=== PATIENT | male | born 1960 | race Caucasian/White ===

== ENCOUNTER 2021-06-17 22:46 | Inpatient (IN) | payer MEDICARE, OTHER ==
[~2021-06-17] VITALS: Ht 188 cm; Wt 89.4 kg
--- NOTE | 2021-06-17 23:02 | NUR ---
MEDICALLY CLEARED BY DR DIAZ.
--- NOTE | 2021-06-17 23:36 | NUR ---
TRANSFERED TO [facility] VIA WHEELCHAIR WITH NO DISTRESS NOTED.
[2021-06-18] MEDS ORDERED: ACETAMINOPHEN 650 MG SUPP.RECT RC PRN (00:30)
[2021-06-18] MEDS ORDERED: MAG HYDROX/AL HYDROX/SIMETH 30 ML LIQUID UDC PO PRN (00:30)
[2021-06-18] MEDS ORDERED: ACETAMINOPHEN 325 MG TABLET PO PRN (00:30)
[2021-06-18] MEDS ORDERED: BLOOD SUGAR DIAGNOSTIC 1 EACH STRIP VI ONE (00:30)
--- NOTE | 2021-06-18 04:37 | NUR ---
Per hold, patient is on a 5150 for GD, DTS and DTO. Advisement states that patient is manic and agitated, yelling out at neighbors and running out into the street. On face to face evaluation, patient has a blunted affect and has a hard time expressing self and responding to questions, but is pleasant and AOx4. Denies any pain or discomfort at this time and is able to follow commands. Denies and AH, VH, SI or HI.
[2021-06-18 05:41] VITALS: BP 154/95
--- NOTE | 2021-06-18 06:29 | NUR ---
Patients' Rights Handbook and Advisement given to pt. Dr. Kamara and Dr. Fuller aware of admission. Pt refused to answer most admission questions. Safety precautions in place.
[2021-06-18 08:34] VITALS: BP 140/69
[2021-06-18] MEDS: AMLODIPINE 10 MG TABLET PO SCH (08:40)
--- NOTE | 2021-06-18 08:58 | NUR ---
SW Family Contact SW spoke with patient's brother Naseem Ziegler ([phone]) and discussed treatment and discharge plan. Naseem provided collateral information (see SW assessment). Naseem stated pt's mother, Lydia Ziegler, is the DPOA and conservator, this SW requested copies. Naseem would like SNF placement for the patient at [facility] ([phone]) prior to returning to [facility] ([phone]). SW will coordinate appropriate placement options.
--- NOTE | 2021-06-18 09:09 | NUR ---
Treatment Plan Patient refused to sign treatment plan due to disorganized thought process.
--- NOTE | 2021-06-18 09:28 | NUR ---
GPS: PB RIZVI, COORDINATOR FROM PT APARTMENT CALLED AND SPOKE TO ENTRY LEVEL PROJECT ENGINEER ABOUT PT CONDITION. PER PB, PT HAS BEEN YELLING ON NEIGHBORS AND RUNNING ON STREET TRAFFIC WITH NO REGARDS TO HIS SAFETY THAT'S WHY NEIGHBORS CALLED 911. PER PB, HE WILL SEND PT MEDICATION LIST THRU FAX. PB RIZVI CONTACT NO. IS . ALSO SPOKE WITH HIS BROTHER ANGELA SELBY, WITH PT APPROVAL TO UPDATE THE BROTHER WITH HIS CONDITION. PER ANGELA, PT IS VERY NICE WHEN TAKING HIS MEDICATION AND BE MANIC WHEN PT STOPS TAKING HIS MEDS. ALSO PER ANGELA, PT HAD A MEDICAL ISSUE ON LEFT LOWER LEG, A HISTORY OF CELLULITIS. UPON ASSESSMENT, PT HAS PITTING EDEMA +2 ON LEFT LOWER LEG WITH REDNESS NOTED, NOT WARM TO TOUCH. WILL NOTIFY REHABILITATION CONSULTANT TO CHECK ON IT.
--- NOTE | 2021-06-18 09:28 | NUR ---
AGUSTIN Initial Discharge Plan Patient currently resides at [facility] [address], [place] [address] ([phone]). AGUSTIN contacted [facility] and spoke with Stefan Albrecht, human services program specialist, who stated patient is welcome back. AGUSTIN will continue to work with patient, family, and MD to ensure a safe and proper discharge plan.
--- NOTE | 2021-06-18 09:30 | NUR ---
SW Facility Contact SW spoke with Stefan Albrecht, program or project administrator with [facility] ([phone]) and discussed treatment and discharge plan. Stefan Albrecht stated patient is welcome back. Stefan Albrecht provided information on pt's psychiatrist, Dr. Javier Krueger, and internal psychiatric nurse, Sarah Barahona ([phone]).
--- NOTE | 2021-06-18 09:47 | NUR ---
GPS: ANGELA SELBY NO. IS .
--- NOTE | 2021-06-18 09:56 | NUR ---
SW Family Contact SW spoke with patient's mom Lydia Ziegler ([phone]) to discuss treatment and discharge plan and request copies of DPOA. Lydia stated she does not believe she is the DPOA.
--- NOTE | 2021-06-18 12:58 | NUR ---
GPS: SPOKE WITH ITALIA CALLAHAN, [facility] COORDINATOR OF [facility]UAN KESHIA CRIS, PT HAVE 2 MEDICATIONS. SEROQUEL XR 300MG QHS, MELATONIN 5MG QHS. PER PHARMACY TO INPUT ORDER ON EMAR. WILL NOTIFY DR WRIGHT (PROJECT MANAGER/DESIGN MANAGER AND PSYCHIATRIST). Addendum: 06/18/21 at 1617 by AMY ORTIZ RN REMOVED SEROQUEL AND MELATONIN ORDER. WILL INFORM DR PUGA FIRST.
--- NOTE | 2021-06-18 13:38 | NUR ---
GPS: PT REFUSED MRSA SWAB TODAY. WILL TRY LATER.
[2021-06-18 16:00] VITALS: BP 133/67
[2021-06-18 20:10] VITALS: BP 136/62
[2021-06-18] MEDS ORDERED: QUETIAPINE FUMARATE 200 MG TABLET PO SCH (21:00)
[2021-06-18] MEDS ORDERED: MELATONIN 3 MG TABLET PO SCH (21:00)
[2021-06-19 07:30] VITALS: BP 136/82
[2021-06-19] MEDS: AMLODIPINE 10 MG TABLET PO SCH (08:21)
[2021-06-19] MEDS: DIVALPROEX 250 MG TABLET.DR PO SCH ×3 (08:30→17:00)
[2021-06-19] MEDS: BENZTROPINE MESYLATE 1 MG TABLET PO SCH ×3 (08:30→17:00)
[2021-06-19] MEDS: HALOPERIDOL 5 MG TABLET PO SCH ×3 (08:30→17:00)
--- NOTE | 2021-06-19 09:19 | NUR ---
Firearms Report: Head Packager completed and submitted a [employer] firearms report for 5150 danger to self, danger to others, and grave disability certifications. A copy of report has been placed in patient chart.
[2021-06-19] MEDS: CEphaleXIN 500 MG CAPSULE PO SCH ×2 (17:00→20:08)
[2021-06-19 19:55] VITALS: BP 144/79
--- NOTE | 2021-06-20 01:41 | NUR ---
Received Pt wandering the hallways and asking "what kind of place is this?" Pt is A+O x2 to self and somewhat to day/date. Pt appears to be confused, disoriented, and disorganized and requires frequent redirection and reorientation. Pt is paranoid and suspicious of staff and resistant to care. Pt is non compliant with medications, and uncooperative with his treatment plan despite extensive encouragement and prompting. VS stable, denies pain.
--- NOTE | 2021-06-20 01:45 | NUR ---
Received pt sleeping comfortably in bed. Aroused easily to verbal stimuli. No acute distress noted. Ambulatory. Safety measures maintained. Will continue to monitor.
[2021-06-20 07:30] VITALS: BP 131/82
[2021-06-20] MEDS: DIVALPROEX 250 MG TABLET.DR PO SCH ×3 (09:00→17:00)
[2021-06-20] MEDS: BENZTROPINE MESYLATE 1 MG TABLET PO SCH ×3 (09:00→17:00)
[2021-06-20] MEDS: CEphaleXIN 500 MG CAPSULE PO SCH ×2 (09:00→13:00)
[2021-06-20] MEDS: HALOPERIDOL 5 MG TABLET PO SCH ×3 (09:00→17:00)
[2021-06-20] MEDS: AMLODIPINE 10 MG TABLET PO SCH ×2 (09:00→17:14)
[2021-06-20 16:00] VITALS: BP 143/83
[2021-06-20 20:00] VITALS: BP 147/77
--- NOTE | 2021-06-21 04:18 | NUR ---
PT NOT SLEEPING AT ALL IN BED. FREQUENTLY AMBULATING UNIT HALLWAY, WANDERING AIMLESSLY AND GOING INTO OTHER PT ROOMS. PT IS QUITE PARANOID AND DELUSIONAL, BELIEVES PIERCING ARTIST IS NOT A REAL NURSE. REFUSES SLEEPING MEDICATIONS BECAUSE "I DON'T TAKE PILLS FROM PEOPLE THAT AREN'T REAL NURSES."
[2021-06-21] MEDS: DIVALPROEX 250 MG TABLET.DR PO SCH ×3 (08:36→16:16)
[2021-06-21] MEDS: BENZTROPINE MESYLATE 1 MG TABLET PO SCH ×3 (08:36→16:15)
[2021-06-21] MEDS: HALOPERIDOL 5 MG TABLET PO SCH ×3 (08:36→16:16)
--- NOTE | 2021-06-21 14:02 | NUR ---
The patient refused the left lower extremity ultrasound. RN [place] noted.
--- NOTE | 2021-06-21 14:16 | NUR ---
pt refused JAZMINE order. Pt refusing all his medications today. Pt refused blood draw am.
[2021-06-21 21:43] VITALS: BP 156/86
[2021-06-22] MEDS ORDERED: OLANZAPINE 10 MG VIAL IM ONE (00:45)
--- NOTE | 2021-06-22 06:20 | NUR ---
PT was disorganized at start of shift. He wandered into peers rooms, requiring frequent redirection. He refused and PRN medications. At 2300, he began to turn over the table in the activity room. He was yeling and moving from chair to chair, appearing distracted by internal stimuli. He continued to be unable to be redirected at 2330, and began to be aggressive, and posturing with his fists. IM Zyprexa 10 mg was given at 0055, and he eventually calmed down and went to sleep. As of now, he continues to sleep, but only slept 3.75 hours, for the whole night. No distress noted.
[2021-06-22] MEDS: LORAZEPAM 1 MG TABLET PO PRN (07:45)
[2021-06-22] MEDS: HALOPERIDOL 5 MG TABLET PO SCH ×3 (08:37→16:15)
[2021-06-22] MEDS: DIVALPROEX 250 MG TABLET.DR PO SCH ×3 (08:37→16:15)
[2021-06-22] MEDS: BENZTROPINE MESYLATE 1 MG TABLET PO SCH ×3 (08:37→16:15)
[2021-06-22] MEDS: AMLODIPINE 10 MG TABLET PO SCH (08:38)
--- NOTE | 2021-06-22 13:42 | NUR ---
SW SNF Referral SW faxed patient's referral packet to [address] [address] ( ) attention to Bety for review.
--- NOTE | 2021-06-22 13:45 | NUR ---
SW Family Contact SW returned voice mail from pt's brother Naseem Ziegler ([phone]) and provided updates to discharge planning.
--- NOTE | 2021-06-22 18:15 | NUR ---
GPS: Nursing Notes: Noncompliance With Medications: Patient is awake and responding to his name, impaired judgement, wandering around the unit, getting into other patient's room, forgetful at times, paranoid behavior, refusing his psych. medications, stated "those pills are for schizophrenics, and they are not for me..", gets easily irritable when redirected, explained the pros and cons of medications, but continue to refuse his psych. medications, stated "There is nothing wrong with me..", angry affect, loud and pressured speech when redirected, unkempt appearance, unable to formulate a viable plan for self care, continue to monitor for safety, continue with treatment plan.
--- NOTE | 2021-06-22 22:00 | NUR ---
Received to care, initially relatively calm, but appearing to actively respond to internal stimuli, and is non interactive with peers. After a few hours, he has begun to be increasingly agitated, pacing the hallway, wandering into peers rooms, intrusive with both peers and staff. When staff attempts to redirect him, he retains an aggressive stance, and states "you are not a nurse. You do not work here. Get away from me.' he de escalates when staff stops engaging or redirecting him. He refused all PRN medications, stating "you are trying to given me medicine for schizophrenics". As of now, he is watching TV, talking to self, occasionally yelling. Peers are all fearful of him, and his unpredictable behavior. Will continue to monitor closely, for safety.
[2021-06-22] MEDS ORDERED: HALOPERIDOL LACTATE 5 MG/1 ML VIAL IM ONE (23:45)
[2021-06-22] MEDS ORDERED: diphenhydrAMINE 50 MG/1 ML VIAL IM ONE (23:45)
[2021-06-22] MEDS ORDERED: LORAZEPAM 2 MG/1 ML VIAL IM ONE (23:45)
--- NOTE | 2021-06-23 04:46 | NUR ---
CHEMICAL RESTRAINT NOTE: Pt had continued to escalate in his psychotic and aggressive behavior, pacing the hallway, yelling and talking to self, and posturing with his fists, when staff would attempt to redirect him, to the point that security was called, and Dr Fuller was paged. He went to his room, and threatened to harm his room mate, who was quickly removed. an emergency injection of IM Haldol 3mg /Ativan 2 mg/ Benadryl 25 mg was given at 0006, without incident, to the left and right deltoid regions, with his consent, after agreeing to let the female nurse administer it, with security standing right next to him, after he said he didn't want me anywhere near him, because I "was an intruder". He calmed down within about 20 minutes, and was asleep in his bed, by 0100, with the bed alarm on, for his own safety. As of now, he continues to sleep. Respirations remain even, and unlabored. No distress noted. Will continue to monitor closely.
--- NOTE | 2021-06-23 06:00 | NUR ---
Continues to sleep. Slept 4.75 hours, total.
[2021-06-23 07:30] VITALS: BP 151/86
[2021-06-23 08:19] LABS: CREATININE 1.1 mg/dL (0.6-1.3); POTASSIUM 3.9 mmol/L (3.5-5.1)
[2021-06-23] MEDS: DIVALPROEX 250 MG TABLET.DR PO SCH ×3 (08:45→17:00)
[2021-06-23] MEDS: HALOPERIDOL 5 MG TABLET PO SCH ×3 (08:45→17:00)
[2021-06-23] MEDS: BENZTROPINE MESYLATE 1 MG TABLET PO SCH ×3 (08:45→17:00)
[2021-06-23] MEDS: AMLODIPINE 10 MG TABLET PO SCH (08:46)
--- NOTE | 2021-06-23 10:15 | NUR ---
GPS: COURT HEARING DONE. PT HOLD ON GRAVELY DISABLE. PT REFUSED SPEAKING WITH PT RIGHT ADVOCATE.
[2021-06-23 15:39] VITALS: BP 139/83
--- NOTE | 2021-06-23 16:13 | NUR ---
GPS: Nursing Notes: Noncompliance With Medications: Patient is awake and responding to his name, paranoid behavior, refusing his medications, believes that there is nothing wrong with him, stated "I do not take pills..", episodes of going into other patient's room, redirected and reoriented during shift, unable to formulate a viable plan for self care, re-offer his psych. medications, but continue to refuse medications, labile, unpredictable behavior, asking for a shower, but when staff opens the shower door, patient walks away stating "I don't need it..", continue to monitor for safety, continue with treatment plan.
--- NOTE | 2021-06-23 17:20 | NUR ---
GPS: Nursing Notes: Riese Petition: Patient has been served a copy of [employer], continue to monitor for safety, continue with treatment plan.
[2021-06-23 20:45] VITALS: BP 142/73
[2021-06-24] MEDS: LORAZEPAM 1 MG TABLET PO PRN (04:07)
--- NOTE | 2021-06-24 04:43 | NUR ---
isolative and guarded, all night. observeb to be restless all night, going betweeen the activity rooom, and his room. Assited with a shower at around 0230. PRN ativan given at 0407, with much encouragement. He now appears calmer. No aggressive behavior observed. Assisted as needed.
--- NOTE | 2021-06-24 06:00 | NUR ---
Slept 2.5 hours. hE continues to sleep. No distress noted.
[2021-06-24 07:30] VITALS: BP 159/87
[2021-06-24] MEDS: DIVALPROEX 250 MG TABLET.DR PO SCH ×3 (08:44→17:00)
[2021-06-24] MEDS: BENZTROPINE MESYLATE 1 MG TABLET PO SCH ×3 (08:44→17:00)
[2021-06-24] MEDS: HALOPERIDOL 5 MG TABLET PO SCH ×3 (08:45→17:00)
[2021-06-24] MEDS: AMLODIPINE 10 MG TABLET PO SCH ×2 (08:45→20:49)
[2021-06-24 16:28] VITALS: BP 137/67
[2021-06-24 20:12] VITALS: BP 161/86
[2021-06-25 07:30] VITALS: BP 142/86
[2021-06-25] MEDS: AMLODIPINE 10 MG TABLET PO SCH (10:09)
[2021-06-25] MEDS: HALOPERIDOL 5 MG TABLET PO SCH ×4 (10:10→17:00)
[2021-06-25] MEDS: DIVALPROEX 250 MG TABLET.DR PO SCH ×4 (10:10→17:00)
[2021-06-25] MEDS: BENZTROPINE MESYLATE 1 MG TABLET PO SCH ×4 (10:10→17:00)
--- NOTE | 2021-06-25 14:41 | NUR ---
Gps/Ecg Technician- Took am routine meds. this am, refused afternoon , claimed he does not need too much meds.
[2021-06-25 16:00] VITALS: BP 120/85
[2021-06-25 20:00] VITALS: BP 133/82
[2021-06-26 07:30] VITALS: BP 137/83
--- NOTE | 2021-06-26 08:30 | NUR ---
RECEIVED CALL FROM DR PUGA INQUIRING WHAT TIME RIESE HEARING WAS TO BE DONE BECAUSE HE MADE HIS AVAILABILITY FOR TODAY. NO HEARING DATE WAS NOTED TO BE HELD TODAY. TOLD DR. PUGA I WOULD CALL HIM BACK SO I CAN CALL THE COURTS AND INQUIRE. BOILER ASSISTANT OPERATOR CALLED THE COURT AND AN AUTOMATED MESSAGE REVEALED THEY ARE CLOSED FOR THE EXTENDED HOLIDAYS. CALLED AND NOTIFIED DR. PUGA. HE IS AWARE AND WILL FOLLOW UP ON TUESDAY.
[2021-06-26] MEDS: BENZTROPINE MESYLATE 1 MG TABLET PO SCH ×3 (09:00→17:00)
[2021-06-26] MEDS: HALOPERIDOL 5 MG TABLET PO SCH ×3 (09:00→17:00)
[2021-06-26] MEDS: DIVALPROEX 250 MG TABLET.DR PO SCH ×3 (09:00→17:00)
[2021-06-26] MEDS: AMLODIPINE 10 MG TABLET PO SCH (09:00)
--- NOTE | 2021-06-26 10:30 | NUR ---
PT RECEIVED UNIT AMBULATING UNIT HALLWAY. PARANOID AND SUSPICIOUS. PT EXHIBITS BIZARRE BEHAVIOR AT TIMES, AVOIDS EYE CONTACT WHILE AIR CONDITIONING SERVICE TECHNICIAN IS TALKING TO HIM, AND IN THE MIDDLE OF A CONVERSATION WILL WALK AWAY. REFUSED ALL PO MEDICATIONS. WHEN ASKED WHY, PT STATES "THEY'RE NOT MY MEDICATION" AND "YOU'RE NOT A NURSE." UNABLE TO REORIENT TO REALITY.
[2021-06-26 16:45] VITALS: BP 152/84
[2021-06-26 20:34] VITALS: BP 155/80
[2021-06-27 08:10] VITALS: BP 145/84
[2021-06-27] MEDS: DIVALPROEX 250 MG TABLET.DR PO SCH ×3 (08:38→16:38)
[2021-06-27] MEDS: BENZTROPINE MESYLATE 1 MG TABLET PO SCH ×3 (08:38→16:38)
[2021-06-27] MEDS: HALOPERIDOL 5 MG TABLET PO SCH ×3 (08:38→16:38)
[2021-06-27] MEDS: AMLODIPINE 10 MG TABLET PO SCH (08:39)
--- NOTE | 2021-06-27 14:02 | NUR ---
Pt. is received awake in his room. A/O X 2 to person, place. Pt. affect is bizarre, suspicious with medications, talkative. Pt. was complaint with medications this morning, but refused all 13:00 medications. Ambulates without assistance, self care, redirectable. Pt. is encourage to vent feelings and emotions. Fall and safety precautions implemented.
[2021-06-27 15:46] VITALS: BP 135/81
--- NOTE | 2021-06-27 16:39 | NUR ---
Patient is compliant with medications at this time.
[2021-06-27 20:00] VITALS: BP 137/77
[2021-06-28 07:38] VITALS: BP 142/80
--- NOTE | 2021-06-28 08:00 | NUR ---
REC'D PATIENT AIN BED QUIET WITH NO SELF DISCLOUSURE, mood quiet no anxiety noted. Took am meds ok a little paranoid about them explained what meds for , no peer interaction noted isolative in room mostlly.patient mood bizarre alittle , continue to monitor for safety;
[2021-06-28] MEDS: AMLODIPINE 10 MG TABLET PO SCH (09:34)
[2021-06-28] MEDS: BENZTROPINE MESYLATE 1 MG TABLET PO SCH ×2 (09:34→16:48)
[2021-06-28] MEDS: DIVALPROEX 500 MG TABLET.DR PO SCH ×2 (09:35→16:47)
[2021-06-28] MEDS: HALOPERIDOL 5 MG TABLET PO SCH ×3 (09:36→17:00)
[2021-06-28 15:59] VITALS: BP 119/74
--- NOTE | 2021-06-28 18:22 | NUR ---
Patient refused 1700 meds stating he only takes them in am tried too explain they are orderd twice a day to no success, pt pulled emergency light in bathroom for no reason asked why he said he just did. Pt fumbling in closet. Bizarre in pm, Continue to monitor for safety;
[2021-06-28 20:07] VITALS: BP 132/76
[2021-06-28] MEDS: TEMAZEPAM 7.5 MG CAPSULE PO PRN (23:38)
[2021-06-29 07:59] VITALS: BP 117/75
--- NOTE | 2021-06-29 08:00 | NUR ---
RECEVIED PATIENT in room still forgetful and a little confused, reoriented to the plans of the day. Pt refused meds and encouraged to take them to help him feel better, informed Charge Nurse of it patient has been Reissed put not implemented.Psychiastrist made aware by Charge nurse.pt pacing hallways to day room still with loose thoughts. continue to encourage medicatio to take.
[2021-06-29] MEDS: DIVALPROEX 500 MG TABLET.DR PO SCH ×2 (09:00→17:35)
[2021-06-29] MEDS: BENZTROPINE MESYLATE 1 MG TABLET PO SCH ×2 (09:00→17:34)
[2021-06-29] MEDS: AMLODIPINE 10 MG TABLET PO SCH (09:00)
[2021-06-29] MEDS: HALOPERIDOL 5 MG TABLET PO SCH ×2 (09:00→17:00)
--- NOTE | 2021-06-29 09:39 | NUR ---
Called [facility] around 09:45 am at [phone] regards to patient elissa faxed on 06/22/21 at 22:40, talked to Isabelle and she told me she never got our fax related to this patient elissa.
--- NOTE | 2021-06-29 12:47 | NUR ---
SW Facility Contact SW called [facility] located at [address] [place] [address] ([phone]) and was referred to Filippo trade show coordinator ([phone]) to follow-up on status of referral. Ermias corrales referral is pending clinical approval.
--- NOTE | 2021-06-29 12:57 | NUR ---
SW SNF Referral SW faxed patient's referral packet to [address] [place] [address] ( ) attention to Beyt for review.
--- NOTE | 2021-06-29 14:49 | NUR ---
SW Facility Contact AGUSTIN spoke with Bety at [address] [address] ( ) to provide more information regarding patient's medication compliance. Bety stated that she will follow up with AGUSTIN with updates on acceptance at facility.
[2021-06-29 15:58] VITALS: BP 146/75
--- NOTE | 2021-06-29 16:16 | NUR ---
AGUSTIN Care Coordination Contact AGUSTIN spoke with Cathy Wilson ([phone]) clinician at [facility] and discussed treatment and discharge plan.
--- NOTE | 2021-06-29 18:33 | NUR ---
no changes in strange behavior no peer interaction unkempt and hard to get through.
[2021-06-29 19:57] VITALS: BP 115/73
[2021-06-30] MEDS: LORAZEPAM 1 MG TABLET PO PRN (03:00)
[2021-06-30 08:00] VITALS: BP 146/76
[2021-06-30] MEDS: BENZTROPINE MESYLATE 1 MG TABLET PO SCH ×2 (08:28→17:10)
[2021-06-30] MEDS: AMLODIPINE 10 MG TABLET PO SCH (08:29)
[2021-06-30] MEDS: DIVALPROEX 500 MG TABLET.DR PO SCH ×2 (08:30→17:00)
[2021-06-30] MEDS: HALOPERIDOL 5 MG TABLET PO SCH ×2 (08:30→17:00)
[2021-06-30 16:00] VITALS: BP 156/81
--- NOTE | 2021-06-30 16:09 | NUR ---
Pt. is A/O X 1 -2 to person. Pt. affect is bizarre, suspicious with medications, withdrawn, isolative at times. Refuses Depakote 500 mg and Haldol 10 mg at 10:00 am. Ambulates without assistance. Reality orientation provided. Fall and safety precautions implemented.
--- NOTE | 2021-06-30 21:00 | NUR ---
RECEIVED PATIENT IN THE DAY ROOM. HE IS NOTED A/O X 1. HE IS ABLE TO AMBULATE WITH STEADY GAIT. PATIENT IS NOTED WITH IMPAIRED INSIGHT AND JUDGMENT TO THE REASON FOR HIS ADMISSION TO [facility]. HE IS A POOR HISTORIAN. NOTED RESTLESS, PARANOID IDEATION, PACING THE HALLWAY; HOWEVER, NO AGGRESSIVE BX NOTED AT THIS TIME.PO FLUIDS AND SNACKS WERE GIVEN. V/S STABLE. HE IS REASSURED FOR HIS SAFETY. SAFETY AND FALL PRECAUTION IN PLACE. WILL CONTINUE TO MONITOR.
[2021-06-30] MEDS: TEMAZEPAM 7.5 MG CAPSULE PO PRN (23:35)
--- NOTE | 2021-06-30 23:40 | NUR ---
patient noted pacing the hallway, unable to stay in bed. temazepam 7.5mg PO PRN was given. will continue to monitor.
[2021-07-01] MEDS: LORAZEPAM 1 MG TABLET PO PRN (03:25)
--- NOTE | 2021-07-01 03:35 | NUR ---
patient noted pacing the hallway, he was noted anxious and hard to redirect. Ativan 1 mg PO PRN was given. will continue to monitor.
--- NOTE | 2021-07-01 07:20 | NUR ---
Patient slept for approx 5.5 hrs through the night. Noted calm and cooperative at this time.
[2021-07-01 07:30] VITALS: BP 132/80
[2021-07-01] MEDS: BENZTROPINE MESYLATE 1 MG TABLET PO SCH ×2 (09:00→16:41)
[2021-07-01] MEDS: DIVALPROEX 500 MG TABLET.DR PO SCH ×2 (09:00→16:41)
[2021-07-01] MEDS: AMLODIPINE 10 MG TABLET PO SCH (09:00)
[2021-07-01] MEDS: HALOPERIDOL 5 MG TABLET PO SCH ×2 (09:00→16:42)
[2021-07-01 16:00] VITALS: BP 133/80
--- NOTE | 2021-07-01 16:24 | NUR ---
SW Family Contact SW spoke with patient's brother Naseem Ziegler ([phone]) and informed of discharge plan to [facility] [address] [place] [address] ([phone]) tomorrow 07/02/21. Naseem verbalized understanding.
--- NOTE | 2021-07-01 16:37 | NUR ---
SW Care Coordination Contact SW spoke with Stefan Albrecht, communications programmer with [facility] ([phone]) and informed of [place] [address] ([phone]) tomorrow 07/02/21.
--- NOTE | 2021-07-01 16:50 | NUR ---
SW Facility Contact AGUSTIN faxed updated progress notes to Bety with [facility] [address] [place] [address], [place] [address] (phone: [phone]; fax: [phone]).
--- NOTE | 2021-07-01 17:34 | NUR ---
Patient is alert and oriented. Patient is intrusive, has poor boundaries with other patients, anxious, restless, and frequently pacing in the hallway. patient has been refusing prescribed psychotropic medications. He states that he "does not need these". Patient was provided with education about importance of medication compliant and educated about each individual medication, but he continues to refuse. Patient denies suicidal and homicidal ideation. Patient is able to ambulate independently. Able to perform self care and ADL's independently. Patient is encouraged to participate in unit groups and therapeutic milieu, educated about impulse control and communicating needs to staff appropriately.
[2021-07-01 20:17] VITALS: BP 151/86
[2021-07-01] MEDS: TEMAZEPAM 7.5 MG CAPSULE PO PRN (22:53)
[2021-07-02 07:30] VITALS: BP 136/81
[2021-07-02] MEDS: DIVALPROEX 500 MG TABLET.DR PO SCH (09:00)
[2021-07-02] MEDS: HALOPERIDOL 5 MG TABLET PO SCH (09:00)
[2021-07-02 09:37] VITALS: BP 136/81
[2021-07-02] MEDS: BENZTROPINE MESYLATE 1 MG TABLET PO SCH (09:37)
[2021-07-02] MEDS: AMLODIPINE 10 MG TABLET PO SCH (09:37)
--- NOTE | 2021-07-02 12:21 | NUR ---
SW Discharge Note [place] [address] ([phone]). Patient will be provided Ambulance transportation at 12PM. Spoke with Bety, wellness coordinator, at the facility who states they are ready to accept the patient today. Patient is aware and agreeable with discharge plans. Patient is alert and oriented x1-2, is unable to plan for self-care at this time; however, is willing to accept care at. Patient denies any suicidal or homicidal ideation. Pts brother, Naseem Ziegler ([phone]), is agreeable with discharge plan. Patient will follow-up at the facility with Dr. Fuller Psychiatrist and Dr. Kamara Surgical Processor. Patient will follow-up with clinician at [facility] with Cathy Wilson ([phone]). Patient presents with calm mood and congruent affect.
--- NOTE | 2021-07-02 13:00 | NUR ---
Gps/Salesperson Wigs Spoke to Dr Berna Fuller, orders received, to administer Haldol Decanoate 100 mg IM x 1 dose today. Patient was informed of his discharge plan to [facility], patient stated" I will not go there , and Dr Fuller is not my Psychiatrist anymore."Discharge planning in progress.
[2021-07-02] MEDS ORDERED: HALOPERIDOL DECANOATE 50 MG/1 ML AMPUL IM ONE (14:00)
--- NOTE | 2021-07-02 14:17 | NUR ---
Gps/Bathroom Tiling Professional- Patient was informed he is going to be discharged via ambulance to [facility] this pm. Arranged warehouse order picker via ambulance , between now to 1500 per [facility].
--- NOTE | 2021-07-02 15:30 | NUR ---
Gps/Insulation Technician- Report was given to YAMILETH Jara, all belongings given back to patient . Discharge to [facility] via ambulance, no new complaints noted .
== END 2021-07-02 15:30 | DRG 885 ==
LOC: ER 22:49 → GPS 23:22
PROVIDERS: ADMIT Psychiatry & Neurology Psychiatry; ATTEND Nurse Practitioner Family
DX: F31.64 Bipolar disorder, current episode mixed, severe, with psychotic features (principal); N18.9 Chronic kidney disease, unspecified; B19.20 Unspecified viral hepatitis C without hepatic coma; G93.41 Metabolic encephalopathy; E87.2 Acidosis; E78.5 Hyperlipidemia, unspecified; Z88.2 Allergy status to sulfonamides; Z88.8 Allergy status to other drugs, medicaments and biological substances; E11.22 Type 2 diabetes mellitus with diabetic chronic kidney disease; I12.9 Hypertensive chronic kidney disease with stage 1 through stage 4 chronic kidney disease, or unspecified chronic kidney disease; Z91.14 Patient's other noncompliance with medication regimen; Z91.51 Personal history of suicidal behavior
CPT/HCPCS: 36415; A4663; J1200; J1630; J1631; J2060; J2358; J3490